=== PATIENT | female | born 1980 | race Asian ===

== ENCOUNTER → 2018-06-09 | Outpatient (CLI) | payer OTHER ==
[~2018-06-09] MED LIST: BUPXL150 PO; CYCL10TA29 PO; IBUP800T37 PO; LOR5 PO; OMEP-218 PO; ONDA4TAB PO; SERT25TA87 PO
--- NOTE | 2018-06-09 12:31 | RADIOLOGY IMAGING REPORT ---
FACILITY: PATIENT NAME: Ananda Marvin : 1980 MR: [id number] V: [id number] EXAM DATE: ORDERING PHYSICIAN: ERICA RUBIO TECHNOLOGIST: Location: [facility] [place] Patient: Ananda Marvin : 1980 Visit/Account:[id number] Date of Sevice: 06/09/2018 Exam type: CHEST PA LAT History: Cough x1 week, nonsmoker, chest pain Comparison: December 07, 2015. Findings: The lungs are free of acute effusions, infiltrates or edema. The cardiac silhouette is normal in siz e. The trachea is in midline. There is a gentle S-shaped scoliosis of the thoracolumbar spine IMPRESSION: 1. No acute cardiopulmonary process is seen Report Dictated By: Leslie Freeman MD at 06/09/2018 12:25 PM Report E-Signed By: Leslie Freeman MD at 06/09/2018 12:26 PM WSN:[email or web address]
== END ==
LOC: RAD 10:11
PROVIDERS: ATTEND Family Medicine
DX: J20.9 Acute bronchitis, unspecified (principal)
CPT/HCPCS: 71046